=== PATIENT | male | born 1995 | race Caucasian/White ===

== ENCOUNTER 2016-07-18 09:27 | Emergency (ER) | payer OTHER ==
[~2016-07-18] VITALS: Ht 172.7 cm; Wt 68.0 kg
[~2016-07-18 09:27] MED LIST: AUGMENTIN 875 M1 TAB PO; BACTROBAN OINT.22 GM TOP; DICLOFENAC SODI75 M2 PO; IBUPROFEN800 M1 PO; KEFLEX500 M1 PO; LORAZEPAM1 MG PO; MEDROL4 M2 PO; NORCO 5-325 TA1 EACH PO; PERCOCET 325 MG1 TA2 PO; SERTRALINE HCL100 MG PO; SERTRALINE HYD100 MG PO; SERTRALINE HYDR25 MG PO
[2016-07-18 10:08] LABS: ABSOLUTE BASOPHIL COUNT 0 /CUMM (0.0-0.2); ABSOLUTE EOSINOPHIL COUNT 0.1 /CUMM (0.0-0.7); ABSOLUTE GRANULOCYTE CT 4.5 /CUMM (1.4-6.5); ABSOLUTE LYMPH COUNT 1.7 /CUMM (1.2-3.4); ABSOLUTE MONOCYTE COUNT 0.7 /CUMM (0.10-0.60); BASOPHIL % 0.4 % (0.0-2.0); HEMATOCRIT 40.4 % (42-52); MEAN CORPUSCULAR HGB CONC 33.8 G/DL (33.0-37.0); MEAN CORPUSCULAR VOLUME 88.7 FL (80.0-94.0); MEAN PLATELET VOLUME 7.4 FL (7.4-10.4); PLATELET COUNT 270 /CUMM (130-400); RBC DISTRIBUTION WIDTH 12.7 % (11.5-14.5); RED BLOOD CELL CT 4.55 /CUMM (4.70-6.10)
[2016-07-18 10:11] LABS: GRANULOCYTE % 64.1 % (42.2-75.2)
--- NOTE | 2016-07-18 10:16 | ED PSYCHIATRIC COMPLAINT ---
History of Present Illness General Chief Complaint: ETOH/Drug Related Complaint Stated Complaint: ADEROL WITHDRAWL Source: patient Exam Limitations: no limitations Vital Signs & Intake/Output Vital Signs & Intake/Output Vital Signs Date Time Temp Pulse Resp B/P B/P Pulse O2 O2 Flow FiO2 Mean Ox Delivery Rate 07/18 1211 98.7 122 18 131/77 100 Room Air 07/18 0930 97.6 90 16 155/84 98 Room Air Allergies Coded Allergies: NO KNOWN ALLERGIES (11/01/12) Reconcile Medications Alprazolam 1 MG TABLET 1 TAB PO BID ANXIETY (Reported) Dextroamphetamine/Amphetamine (Dextroamp-Amphetamin 30 MG Tab) 30 MG TABLET 1 TAB PO BID ADHD (Reported) Sertraline HCl 100 MG TABLET 1 TAB PO DAILY ANXIETY (Reported) Triage Note: PT TO ED FOR ADDERALL WITHDRAWAL, STATES HE LEFT A 10DAY DETOX THURSDAY AND STARTED USING AGAIN THE NEXT DAY, STATES LAST USED ADDERALL TODAY. USES OVER 100MG ADDERALL AND OVER 5MG XANAX A DAY. PT C/O ANXIETY, NAUSEA, DIZZY, SHAKY. APPEARS LETHARGIC. ANSWERS QUESTIONS APPROPRIATELY DENIES ANY ETOH/DRUG USE. PTS FATHER DROPPED HIM OFF AND LEFT PRIOR TO TRIAGE. Triage Nurses Notes Reviewed? yes Onset: Gradual Duration: day(s):, changing over time, continues in ED, getting worse Severity: severe HPI: Patient presents for evaluation of worsening anxiety. Patient states that he was "[facility]" [facility] [place] and was discharged Thursday. He presents today for feelings of anxiety. He states since he was discharged he has been getting Adderall and Xanax off the street to treat a prior history of presumed ADHD and his anxiety. He denies suicide ideation. He has been unable follow up as an outpatient after his [facility] stay. He denies alcohol or drug use. Past History Travel History Traveled to [place] past 21 day No Medical History Any Pertinent Medical History? 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 No Review of Systems Review of Systems Constitutional: Reports: no symptoms. EENTM: Reports: no symptoms. Respiratory: Reports: no symptoms. Cardiovascular: Reports: no symptoms. GI: Reports: no symptoms. Genitourinary: Reports: no symptoms. Musculoskeletal: Reports: no symptoms. Skin: Reports: no symptoms. Neurological/Psychological: Reports: see HPI. Hematologic/Endocrine: Reports: no symptoms. Immunologic/Allergic: Reports: no symptoms. All Other Systems: Reviewed and Negative Physical Exam Physical Exam General Appearance: see below Neurological/Psychiatric: see below Comments: General: Alert, calm, cooperative Head: Normocephalic, atraumatic Eyes: Normal inspection, no nystagmus, EOMI Ears: Normal inspection Nose: Normal inspection Throat: Moist mucosa Neck: Supple, no goiter Heart: Regular rate and rhythm, no murmurs rubs or gallops Lungs: Clear to auscultation bilaterally with good air entry Abdomen: Soft nontender nondistended, normal bowel sounds Chest: Nontender Extremities: Normal range of motion grossly, mild tremors present, no cyanosis clubbing or edema of the upper extremities Neurologic: cranial nerves II through XII grossly intact, speech clear, gait normal Psychiatric: No apparent delusions or hallucinations, no pressured speech or thought blocking SAD PERSONS Done? patient not suicidal Progress Differential Diagnosis: stimulant abuse, benzodiazepine abuse, bipolar disorder, personality disorder, anxiety Plan of Care: Orders Procedure Date/time Status EKG 07/18 1232 Active ED CRISIS PSYCH CONSULT 07/18 1019 Active URINE DRUGS OF ABUSE 07/18 944 Complete ETHANOL 07/18 944 Complete COMPREHENSIVE METABOLIC PANEL 07/18 944 Complete CBC WITHOUT DIFFERENTIAL 07/18 944 Complete Laboratory Tests 07/18/16 1001: Anion Gap 12, Estimated GFR > 60, BUN/Creatinine Ratio 21.4, Glucose 91, Calcium 10.0, Total Bilirubin 0.6, AST 58, ALT 55, Alkaline Phosphatase 49, Total Protein 7.5, Albumin 5.1 H, Globulin 2.4, Albumin/Globulin Ratio 2.1, CBC w Diff NO MAN DIFF REQ, RBC 4.55 L, MCV 88.7, MCH 30.0, RDW 12.7, MPV 7.4, Gran % 64.1, Lymphocytes % 24.0, Monocytes % 10.5 H, Eosinophils % 1.0, Basophils % 0.4, Absolute Granulocytes 4.5, Absolute Lymphocytes 1.7, Absolute Monocytes 0.7 H, Absolute Eosinophils 0.1, Absolute Basophils 0, PUBS MCHC 33.8, Serum Alcohol < 10.0 07/18/16 1000: Urine Opiates Screen < 100.00, Methadone Screen < 40, Barbiturate Screen > 800 H, Ur Phencyclidine Scrn < 6.00, Amphetamines Screen > 1450.0 H, U Benzodiazepines Scrn > 800.0 H, Urine Cocaine Screen < 50, Urine Cannabis Screen < 5.00 Comments: 07/18/2016 2:16:08 PM I have updated evident on his test results. He states he has been evaluated by the cook chill technician but now feels that he has a plan in place that will suit his needs. According to his mother he has an intake appointment with [facility] for [facility] detox stay on Thursday at 10:00. lorenzo is in agreement with this plan and wishes to leave. Despite the results of his drug tox, based on clinical evaluation, I feel he is capable medical decision- making at this point. He'll be discharged with his mother. Departure Departure Disposition: HOME OR SELF CARE Condition: Stable Clinical Impression Primary Impression: Polysubstance abuse Referrals: DIEGO JAMIL,SOLA Thompson (PCP/Family) Additional Instructions: Report to [facility] as arranged. Return if any concerns or sudden worsening. Departure Forms: Customer Survey General Discharge Information
[2016-07-18] MEDS ORDERED: DEXTROAMP-AMPHE30 MG PO (10:27)
[2016-07-18] MEDS ORDERED: ALPRAZOLAM1 M2 PO (10:28)
--- NOTE | 2016-07-18 11:46 | ED PSY CRISIS COLLATERAL NOTE ---
Collateral Note Collateral Note Family/Inform/Tyler Contacts: Crisis spoke with patient's mother, Daina Alvarado, and cousin who Asia who is also an employee in the ED and OP psychiatrist as a tech. Mom reports pt was discharged this past Thursday from [facility] in [place] for detox. Mom reports she thought pt was doing well. 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 She reports when he did come home early this morning, he reported he felt like he was going to . Mom called [facility] and they informed her that he can't come back until Thursday for detox. Mom wants pt to do phone interview with [facility] while here in ED.
--- NOTE | 2016-07-18 11:53 | ED PSYCH CRISIS CONSULTATION ---
Crisis Consult Basic Assessment Date of Consult: 07/18/16 Responsible Person/Accompanied By: self Insurance Authorization: Insurance #1: Insurance name: [employer] Phone number: Policy number: [id number] Group number: [id number] Authorization number: ED Provider: Patient's ED Provider: SHAKA ARIZA MD Primary Care Physician: Patient's PCP: SOLA CORTEZ MD PCP's Current Psychiatrist: none Chief Complaint: ETOH/Drug Related Complaint Patient's Quote: "I took a lot of Adderall and Xanax" Present Illness: Pt is a 20 year old male brought in by his father who left before he was in triage because he "took a lot of Adderall and Xanax". He reports he is feeling extremely uncomfortable due to high anxiety. He reports he last used Xanax and Adderrall at 4 a.m. today. Pt's Utox was positive for barbituates, benzodiazepams, and amphetamines. Pt was discharged from [facility] in [place] on Thursday07/13/16 but did not follow up with their recommendations for treatment. He could not remember where they recommended he go for follow up treatment. Pt reports he was diagnosed with ADHD and Anxiety as an adult and at one time was prescribed Adderall and Xanax but he couldn't remember who initially prescribed them. Now, he reports he gets his the Adderall and Xanax from his friernds. He denies drinking ETOH and using other drugs. He is a high school graduate that started [employer]. He is not currently employeed. He has not recieved any mental health treatment. Crisis consulted with Dr. Kang. She asked for his vitals and then asked for an EKG. This was communicated to ED nurse. Pt reported to Dr. Ariza that he had a plan to follow up with [facility] on Thursday. Dr. Ariza discharged patient with mother to follow up at [facility] in [place] Thursday morning. Patient's Address: [address] [place] [address] Other Phone Number: Who Do You Live With? Family Family/Informants Interviewed: Crisis met with pt mother, see collateral notes Allergies - Coded Allergies: NO KNOWN ALLERGIES (11/01/12) Current Medications - Scheduled Medications Alprazolam 1 MG TABLET 1 TAB PO BID ANXIETY #60 (Reported) Entered as Reported by LUCIE ZARATE on 07/18/16 1028 Dextroamphetamine/Amphetamine (Dextroamp-Amphetamin 30 MG Tab) 30 MG TABLET 1 TAB PO BID ADHD #60 (Reported) Entered as Reported by LUCIE ZARATE on 07/18/16 1027 Sertraline HCl 100 MG TABLET 1 TAB PO DAILY ANXIETY #30 (Reported) Entered as Reported by YESSI GUSTAFSON on 01/12/16 0431 Laboratory Results: Laboratory Tests 07/18/16 1001: Anion Gap 12, Estimated GFR > 60, BUN/Creatinine Ratio 21.4, Glucose 91, Calcium 10.0, Total Bilirubin 0.6, AST 58, ALT 55, Alkaline Phosphatase 49, Total Protein 7.5, Albumin 5.1 H, Globulin 2.4, Albumin/Globulin Ratio 2.1, CBC w Diff NO MAN DIFF REQ, RBC 4.55 L, MCV 88.7, MCH 30.0, RDW 12.7, MPV 7.4, Gran % 64.1, Lymphocytes % 24.0, Monocytes % 10.5 H, Eosinophils % 1.0, Basophils % 0.4, Absolute Granulocytes 4.5, Absolute Lymphocytes 1.7, Absolute Monocytes 0.7 H, Absolute Eosinophils 0.1, Absolute Basophils 0, PUBS MCHC 33.8, Serum Alcohol < 10.0 07/18/16 1000: Urine Opiates Screen < 100.00, Methadone Screen < 40, Barbiturate Screen > 800 H, Ur Phencyclidine Scrn < 6.00, Amphetamines Screen > 1450.0 H, U Benzodiazepines Scrn > 800.0 H, Urine Cocaine Screen < 50, Urine Cannabis Screen < 5.00 Past History Past Medical History Neurological: NONE EENT: TMJ Cardiovascular: NONE Respiratory: NONE Gastrointestinal: NONE Hepatic: NONE Renal: NONE Musculoskeletal: NONE Psychiatric: NONE Endocrine: NONE Blood Disorders: NONE Cancer(s): NONE 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 Past Surgical History Surgical History: none Psychosocial History Strengths/Capabilities: patient has a supportive mother who was here with him helping him set up treatment at [facility] Physical Limitations (Interventions): none observed Psychiatric Treatment History Psych Treatment Psychiatric Treatment No Inpatient Treatment No Outpatient Treatment No Diagnosis by History: 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 Substance Use/Abuse History Drug Use/Abuse 1 Substances Used/Abused Yes Substance Used/Abused Benzodiazepines First Use 16 Last Used 4am 07/18/16 How much used/taken several pills How often daily For how long since 18 Route of use PO Drug Use/Abuse 2 Substances Used/Abused Yes Substance Used/Abused Other (list in comments) (Stimulant- Adderall) First Use 16 Last Used 4 am 07/18/16 How much used/taken several pills How often varies For how long since 18 Route of use PO Drug Use/Abuse 3 Substances Used/Abused Yes Substance Used/Abused Other (list in comments) (barbituates) First Use he reports he hasn't taken anything except adderrall and xanax Substance Abuse Treatment Substance Abuse Treatment Past Substance Abuse [place] Yes Inpatient Treatment Yes Outpatient Treatment No Location of Treatment [facility] Reason for Treatment detox Dates of Treatment did 10 days, discharging on 07/13/13 Response to Treatment relapsed after discharge, did not follow up with recommendations Current Mental Status Mental Status Orientation: Person, Place, Situation Affect: Anxious, Flat Speech: Soft Neuro-vegetative: Concentration Poor, Energy Decreased, Helpless, Sleep Disturbance Appearance Appearance- Dress/Hygiene: patient presents in hospital scrubs with tattoos on both arms Behaviors Thought Process: WNL Thought Content: WNL Memory: Impaired Insight: Poor SI/HI Risk Assessment Past Suicidal Ideation/Attempts No Current Suicidal Ideation/Att No Past Homicidal Ideation/Att: No Current Homicidal Ideation/Attempts No Degree of Intent: None Gravely Disabled: Poor Impulse Control, Poor Judgment Risk Factors: age (under 24/over 65), high anxiety/distress, substance abuse, poor impulse control, male Lethality Ratin (mild) PTSD Checklist PTSD Done? 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 Ariza discharged patient as pt wanted to go home and follow up with [facility] on 07/21/16. Pt was not assessed as a risk to self or others. Referrals DIEGO JAMIL,SOLA Thompson (PCP/Family)
[2016-07-18 12:11] VITALS: BP 131/77
== END 2016-07-18 14:25 ==
LOC: ERH 09:27
PROVIDERS: Emergency Medicine
DX: F13.10 Sedative, hypnotic or anxiolytic abuse, uncomplicated (principal)
CPT/HCPCS: 80307; 93005; 93010; G0463; G0480

== ENCOUNTER 2016-07-27 21:29 | Emergency (ER) | payer OTHER ==
[~2016-07-27] VITALS: Ht 172.7 cm; Wt 65.8 kg
[~2016-07-27 21:29] MED LIST changes: +ALPRAZOLAM1 M2 PO; +DEXTROAMP-AMPHE30 MG PO
[2016-07-27 21:51] VITALS: BP 146/93
--- NOTE | 2016-07-27 23:26 | ED THROAT/DENTAL COMPLAINT ---
History of Present Illness General Chief Complaint: Sore Throat, Dental Pain Stated Complaint: PT IS HAVING JAW AND MOUTH PROBLEM Source: patient, old records Exam Limitations: no limitations Vital Signs & Intake/Output Vital Signs & Intake/Output Vital Signs Date Time Temp Pulse Resp B/P B/P Pulse O2 O2 Flow FiO2 Mean Ox Delivery Rate 07/27 2151 98.5 115 20 146/93 99 Room Air ED Intake and Output 07/28 0000 07/27 1200 Intake Total Output Total Balance Patient 145 lb Weight Weight Reported by Patient Measurement Method Allergies Coded Allergies: No Known Allergies (07/27/16) Reconcile Medications Alprazolam 1 MG TABLET 1 TAB PO BID ANXIETY (Reported) Dextroamphetamine/Amphetamine (Dextroamp-Amphetamin 30 MG Tab) 30 MG TABLET 1 TAB PO BID ADHD (Reported) Hydrocodone/Acetaminophen (Vicodin 5-300 MG Tablet) 5 MG-300 MG TABLET 1 TAB PO TID pain Sertraline HCl 100 MG TABLET 1 TAB PO DAILY ANXIETY (Reported) Triage Note: TRIAGE: PT TO ER C/C PAIN FROM L PROTESTANT AREA INTO L CHEEK, L JAW AND NECK X 6 MONTHS. CONSTANT SINCE ONSET. HX OF TMJ. HAS BEEN TAKING IBUPROFEN AND ALEVE FOR SAME WITH WITH NO RELIEF. HAS SEEN HIS DENTIST "OVER 20 TIMES IN THE PAST 4 MONTHS" AND WAS GIVEN "A SUPERVISOR TRANSFERRING AND BOXING AND I BIT THROUGH IT. THEN THEY MADE ME A CUSTOM ONE THAT HOOKS ON IT BUT I JUST CAN'T SLEEP". Triage Nurses Notes Reviewed? yes Onset: Abrupt Duration: week(s): (6-8 MONTHS), constant, continues in ED, getting worse Timing: recent history Severity: mild, moderate Severity Numbers: 7 No Modifying Factors: none HPI: 20-year-old male with no significant past medical history presents complaining of pain in his jaw. Patient reports he has been having pain in both sides of his jaw for the past 6-8 months that is getting worse. He has seen his dentist multiple times and has been given mouth guards but that has not helped. He denies any trauma to his jaw. He reports that he will repeatedly move his jaw back and forth without knowing it. the repetitive movement causes pain. Patient reports he has tried taking ibuprofen without any improvement. Patient is having trouble sleeping due to the pain. He has also used muscle relaxers in the past without any improvement. He has used Vicodin previously with some minor improvement. He denies any fever, trauma, swelling, drooling, sore throat , trouble breathing. (HITESH FISHER PA-C) Past History Travel History Traveled to [place] past 21 day No Medical History Any Pertinent Medical History? 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 Yes (HITESH FISHER PA-C) Review of Systems Review of Systems Constitutional: Reports: no symptoms. EENTM: Reports: see HPI, mouth pain. Respiratory: Reports: no symptoms. Cardiovascular: Reports: no symptoms. GI: Reports: no symptoms. Genitourinary: Reports: no symptoms. Musculoskeletal: Reports: no symptoms. Skin: Reports: no symptoms. Neurological/Psychological: Reports: no symptoms. Hematologic/Endocrine: Reports: no symptoms. Immunologic/Allergic: Reports: no symptoms. All Other Systems: Reviewed and Negative (HITESH FISHER PA-C) Physical Exam Physical Exam General Appearance: well developed/nourished, no apparent distress, alert, awake Head: atraumatic, normal appearance Eyes: Bilateral: normal appearance, PERRL, EOMI. Ears: Bilateral: canal normal, Tympanic normal. Nose: normal inspection Mouth/Throat: normal mouth inspection, pharynx normal Neck: normal inspection, supple, full range of motion Cardiovascular/Respiratory: normal breath sounds, normal peripheral pulses, regular rate/rhythm, no respiratory distress Back: normal inspection, normal range of motion Neurologic/Psych: no motor/sensory deficits, awake, alert, oriented x 3, normal gait Skin: intact, normal color Comments: Pain on palpation of temporomandibular joints bilaterally. No swelling erythema or gross deformity. It should be noted that during exam patient was repeatedly moving his jaw laterally. No trismus, or drooling. No visible or palpable signs of infection. Core Measures ACS in differential dx? No Severe Sepsis Present: No Septic Shock Present: No (HITESH FISHER PA-C) Progress Differential Diagnosis: carious tooth, Ludwigs angina, odontogenic abscess, mariela -tonsillar abscess, tooth fracture, TMJ Plan of Care: No evidence of infection on exam currently. Airway is patent and patient is tolerating fluids. Advised patient to continue to use mouthguard, ibuprofen 800 every 8 hours with food. He'll be given a short prescription of Vicodin to use for severe pain. Advised patient to follow up with his primary care doctor/ dentist. Patient agrees with the plan. He is nontoxic appearing at discharge. (HITESH FISHER PA-C) Departure Departure Disposition: HOME OR SELF CARE Condition: Stable Clinical Impression Primary Impression: Chronic jaw pain Referrals: DIEGO JAMIL,SOLA Thompson (PCP/Family) Additional Instructions: Rest avoid excessive chewing or movement of the jaw. Do not chew gum. Where mouthguard and use ibuprofen 800 mg every 8 hours as needed for pain. Vicodin can be used every 4-6 hours as needed for severe pain only. This may cause drowsiness do not drive all taking. Make a follow-up appointment with your dentist and your primary care doctor this week. Return to the emergency department with any concerns. Departure Forms: Customer Survey General Discharge Information Prescriptions: Current Visit Scripts Hydrocodone/Acetaminophen (Vicodin 5-300 MG Tablet) 1 TAB PO TID #10 TAB (HITESH FISHER PA-C) PA/AIR CONDITIONING ENGINEER Co-Sign Statement Statement: ED Attending supervision documentation- [] I saw and evaluated the patient. I have also reviewed all the pertinent lab results and diagnostic results. I agree with the findings and the plan of care as documented in the PA's/AIR CONDITIONING ENGINEER's documentation. [x] I have reviewed the ED Record and agree with the PA's/AIR CONDITIONING ENGINEER's documentation. [] Additions or exceptions (if any) to the PAs/AIR CONDITIONING ENGINEER's note and plan are summarized below: [] (JULIUS JAMIL,JAXON James)
[2016-07-27] MEDS ORDERED: VICODIN 5-3001 EACH PO (23:41)
== END 2016-07-27 23:50 ==
LOC: ERH 21:29
DX: R68.84 Jaw pain (principal)

== ENCOUNTER 2017-04-06 01:50 | Emergency (ER) | payer OTHER ==
[~2017-04-06] VITALS: Ht 172.7 cm; Wt 77.1 kg
[~2017-04-06 01:50] MED LIST changes: +BACLOFEN10 M1 PO; +ULTRAM50 M1 PO; +VICODIN 5-3001 EACH PO
[2017-04-06 02:02] VITALS: BP 153/72
--- NOTE | 2017-04-06 02:02 | ED MVC/FALL/TRAUMA COMPLAINT ---
History of Present Illness General Chief Complaint: General Adult Stated Complaint: LOWER BACK AND RIGHT WRIST PAIN Source: patient, old records Exam Limitations: no limitations Vital Signs & Intake/Output Vital Signs & Intake/Output Vital Signs Date Time Temp Pulse Resp B/P B/P Pulse O2 O2 Flow FiO2 Mean Ox Delivery Rate 04/06 0202 97.0 124 18 153/72 97 Room Air Allergies Coded Allergies: No Known Allergies (04/06/17) Reconcile Medications Alprazolam 1 MG TABLET 1 TAB PO BID ANXIETY (Reported) Baclofen 10 MG TABLET 1 TAB PO TIDPRN PRN muscle spasm/strain Dextroamphetamine/Amphetamine (Dextroamp-Amphetamin 30 MG Tab) 30 MG TABLET 1 TAB PO BID ADHD (Reported) Hydrocodone/Acetaminophen (Vicodin 5-300 MG Tablet) 5 MG-300 MG TABLET 1 TAB PO TID pain Sertraline HCl 100 MG TABLET 1 TAB PO DAILY ANXIETY (Reported) Tramadol HCl (Ultram) 50 MG TABLET 1-2 TAB PO Q6PRN PRN severe pain Triage Nurses Notes Reviewed? yes HPI: Patient states that he was playing soccer yesterday and he tripped and fell landing on his right wrist and his low back. Patient states that he has arthritis in his back and a fall exacerbates it. The pain is 10 out of 10 and increases with movement. There is no radiation of pain. There is no weakness or numbness. There is no incontinence of bowel or bladder. The pain is throbbing in nature. The pain in his right wrist is constant and increases with movement. There pain radiates towards his thumb. The pain is throbbing in nature. The pain is also 10 out of 10. Patient denies hitting his head and there was no loss of consciousness. Past History Travel History Traveled to [place] past 21 day No Medical History Any Pertinent Medical History? see below for history Neurological: NONE EENT: TMJ Cardiovascular: NONE Respiratory: NONE Gastrointestinal: NONE Hepatic: NONE Renal: NONE Musculoskeletal: ANKLE FX Psychiatric: anxiety, HEROIN ABUSE Endocrine: NONE Blood Disorders: NONE Cancer(s): NONE COMMERCIAL INTERN/Reproductive: NONE Tetanus Vaccine: 10/17/14 Surgical History Surgical History: non-contributory, N Psychosocial History Who do you live with Family What is your primary language Swedish Tobacco Use: Never used ETOH Use: occasional use Illicit Drug Use: heroin Family History Hx Contributory? No Review of Systems Review of Systems Constitutional: Reports: no symptoms. Eyes: Reports: no symptoms. Respiratory: Reports: no symptoms. Cardiovascular: Reports: no symptoms. Musculoskeletal: Reports: see HPI, back pain, joint pain. Neurological/Psychological: Reports: no symptoms. Physical Exam Physical Exam General Appearance: well developed/nourished, alert, awake, anxious, moderate distress Head: atraumatic, normal appearance Eyes: Bilateral: PERRL, EOMI. Ears, Nose, Throat, Mouth: hearing grossly normal, moist mucous membrane Neck: normal inspection, supple, full range of motion, no midline tenderness Respiratory: normal breath sounds, chest non-tender, no respiratory distress, lungs clear Cardiovascular: regular rate/rhythm, normal peripheral pulses Gastrointestinal: normal bowel sounds, soft, non-tender, no organomegaly Back: normal inspection, normal range of motion, muscle spasm, no vertebral tenderness Extremities: normal range of motion, tenderness Neurologic/Psych: no motor/sensory deficits, awake, alert, oriented x 3, normal gait, normal mood/affect Core Measures ACS in differential dx? No CVA/TIA Diagnosis No Sepsis Present: No Sepsis Focused Exam Completed? No Progress Differential Diagnosis: C/T/L spine injury, ext injury Plan of Care: Orders Procedure Date/time Status Durable Medical Equipment 04/06 309 Active Diagnostic Imaging: Viewed by Me: Radiology Read. Discussed w/RAD: Radiology Read. Radiology Impression: PATIENT: SERENA PEREZ PRESENT AGE: 21 PATIENT ACCOUNT NO: [id number] : 93 LOCATION: [facility] ORDERING PHYSICIAN: Artie Lowery MD SERVICE DATE: 04/06/17 EXAM TYPE: RAD - XRY-WRIST COMPLETE-RIGHT EXAMINATION: XR WRIST, RIGHT CLINICAL INFORMATION: Pain status post fall COMPARISON: None TECHNIQUE: PA, lateral, and oblique views of the right wrist. FINDINGS: No fracture or dislocation. The carpal rows are appropriately aligned. Joint spaces are maintained. The soft tissues are unremarkable. IMPRESSION: No fracture or malalignment. DICTATED BY: Cristi Gold MD DATE/TIME DICTATED:04/06/17240 DIRECTOR IMAGING:DOMENICO DATE/ TIME TRANSCRIBED:04/06/17240 CONFIDENTIAL, DO NOT COPY WITHOUT APPROPRIATE AUTHORIZATION. <Electronically signed in Other Vendor System> SIGNED BY: Cristi Gold MD 04/06/17245, PATIENT: SERENA PEREZ PRESENT AGE: 21 PATIENT ACCOUNT NO: [id number] : 93 LOCATION: [facility] ORDERING PHYSICIAN: Artie Lowery MD SERVICE DATE: 04/06/17 EXAM TYPE: RAD - XRY-LUMBOSACRAL SPINE AP & LAT EXAMINATION: XR LUMBOSACRAL SPINE CLINICAL INFORMATION: Pain status post fall COMPARISON: MRI from 08/02/2015 TECHNIQUE: AP and lateral views of the lumbosacral spine were obtained. FINDINGS : No acute fracture or subluxation. Vertebral bodies and posterior elements are anatomically aligned. Vertebral body heights are maintained. Intervertebral disc spaces are maintained. The sacroiliac joints are intact. The sacrum appears intact. The bowel gas pattern is unremarkable. IMPRESSION: No evidence of acute fracture or malalignment. DICTATED BY: Cristi Gold MD DATE/TIME DICTATED: 04/06/17241 DIRECTOR IMAGING:DOMENICO DATE/TIME TRANSCRIBED:04/06/17241 CONFIDENTIAL, DO NOT COPY WITHOUT APPROPRIATE AUTHORIZATION. <Electronically signed in Other Vendor System> SIGNED BY: Alla JAMIL,Cristi 04/06/17246 Departure Departure Disposition: HOME OR SELF CARE Condition: Stable Clinical Impression Primary Impression: Right wrist sprain Secondary Impressions: Low back pain Referrals: Aaliyah JAMIL,Len Coleman Patient Has No Primary Care Dr (PCP/Family) Additional Instructions: WEAR SPLINT FOR COMFORT FOLLOW UP WITH DR. GILBERT RETURN IF SYMPTOMS WORSEN OR FOR ANY CONCERNS Departure Forms: Customer Survey General Discharge Information Procedures Splinting Location: RIGHT WRIST Manual Alignment Performed: No Pre-Made Type: velcro Splint: wrist Splint Applied By: splint applied by other Pre-Proc Neuro Vasc Exam: normal Post-Proc Neuro Vasc Exam: normal
--- NOTE | 2017-04-06 02:46 | RADIOLOGY REPORT ---
EXAMINATION: XR WRIST, RIGHT CLINICAL INFORMATION: Pain status post fall COMPARISON: None TECHNIQUE: PA, lateral, and oblique views of the right wrist. FINDINGS: No fracture or dislocation. The carpal rows are appropriately aligned. Joint spaces are maintained. The soft tissues are unremarkable. IMPRESSION: No fracture or malalignment.
--- NOTE | 2017-04-06 02:47 | RADIOLOGY REPORT ---
EXAMINATION: XR LUMBOSACRAL SPINE CLINICAL INFORMATION: Pain status post fall COMPARISON: MRI from 08/02/2015 TECHNIQUE: AP and lateral views of the lumbosacral spine were obtained. FINDINGS: No acute fracture or subluxation. Vertebral bodies and posterior elements are anatomically aligned. Vertebral body heights are maintained. Intervertebral disc spaces are maintained. The sacroiliac joints are intact. The sacrum appears intact. The bowel gas pattern is unremarkable. IMPRESSION: No evidence of acute fracture or malalignment.
== END 2017-04-06 03:24 ==
LOC: ERH 01:50
DX: S63.501A Unspecified sprain of right wrist, initial encounter (principal); M54.5 Low back pain; W18.09XA Striking against other object with subsequent fall, initial encounter; Y93.66 Activity, soccer; Y92.9 Unspecified place or not applicable
CPT/HCPCS: 72100; 73110-RT